=== PATIENT | male | born 1985 | race Caucasian/White ===

== ENCOUNTER 2022-05-18 02:40 | Emergency (ER) | payer OTHER, SELFPAY ==
[2022-05-18 02:50] VITALS: BP 123/82; PULSE 84; RESP 16; TEMP 37; O2SAT 100; BMI 22.4
--- NOTE | 2022-05-18 03:00 | ED.GENADULT ---
HPI - General Adult General Time Seen by Provider: 03:00 Date Seen: 05/18/22 Chief complaint: Abdominal Pain Stated complaint: Stomach issues, back/chest pain Time Seen by Provider: 05/18/22 02:59 Source: patient, RN notes reviewed and old records reviewed Mode of arrival: ambulatory Limitations: no limitations History of Present Illness HPI narrative: 37-year-old male who comes in today with abdominal pain and diarrhea. This started 3 days ago, better yesterday and then had abdominal pain and some cramping tonight so came to the emergency room. Vomited once this evening. Denies fever chills, no blood in the stools. Family member with similar symptoms 2 weeks ago but recovered. Has taken Pepto-Bismol without relief. Related Data Home Medications Medication Instructions Recorded Confirmed No Known Home Medications 05/18/22 05/18/22 Allergies Allergy/AdvReac Type Severity Reaction Status Date / Time No Known Drug Allergies Allergy Verified 05/18/22 02:45 Review of Systems Status of ROS: Reports: 10 or more systems reviewed and unremarkable except as noted in History and below PFSH PFSH Social History Smoking Status: Never smoker Do you use any of these nicotine containing products: Smokeless Tobacco Second hand tobacco smoke exposure: No How often do you have a drink containing alcohol: never How often do you have six or more drinks on one occasion: Never AUDIT-C Alcohol total score: 0 Non-prescribed substance use: denies use Exam Narrative: Exam Narrative: General: well nourished , NAD Head: Atraumatic and normocephalic ENT: External ears and external nose are normal Eyes: Conjunctiva clear, pupils are equal reactive, external ocular motions are intact Neck: Full spontaneous range of motion of the neck Lungs: No respiratory distress Musculoskeletal: No tenderness or deformity Neurologic: No gross focal neurologic deficits Skin: No rashes Psych: Mood and affect are appropriate Const: Vital Signs, click to edit/add: Vital Signs - 24 hr 05/18/22 02:50 Temperature 98.6 F Pulse Rate [Pulse Oximeter] 84 Respiratory Rate 16 Blood Pressure [Le ft Upper Arm] 123/82 Pulse Oximetry 100 Oxygen Delivery Me thod Room Air Course Course Hospital Course: Patient seen and examined, prior records reviewed. Patient presents today with diarrhea and some abdominal cramping. On exam here, patient's pain-free. No fever or chills. No tenderness on abdominal exam at this time. Labs are ordered along with fluids and Imodium. If these are reassuring, patient can be discharged. Would expect leukocytosis given GI illness but in absence of abdominal tenderness on exam, no indication for CT pelvis at this time. Reevaluation(s) Reevaluation #1: Labs independently interpreted by me demonstrates slightly elevated total bilirubin, otherwise basic panel CBC are reassuring. Patient stable for discharge with Bentyl this mood improved symptoms. Time: 03:51 Vital Signs Vital signs: Initial Vital Signs Temperature 98.6 F 05/18/22 02:50 Temperature Source Temporal Artery Scan 05/18/22 02:50 Pulse Rate 84 05/18/22 02:50 Respiratory Rate 16 05/18/22 02:50 Blood Pressure 123/82 05/18/22 02:50 Blood Pressure Mean 95 05/18/22 02:50 Pulse Oximetry 100 05/18/22 02:50 Oxygen Delivery Method 05/18/22 02:50 Vital Signs Temperature 98.6 F 05/18/22 02:50 Pulse Rate 84 05/18/22 02:50 Respiratory Rate 16 05/18/22 02:50 Blood Pressure 123/82 05/18/22 02:50 Pulse Oximetry 100 05/18/22 02:50 Oxygen Delivery Method 05/18/22 02:50 Temperature 98.6 F 05/18/22 02:50 Pulse Rate 84 05/18/22 02:50 Respiratory Rate 16 05/18/22 02:50 Blood Pressure 123/82 05/18/22 02:50 Pulse Oximetry 100 05/18/22 02:50 Oxygen Delivery Method 05/18/22 02:50 Medical Decision Making Medical Records Medical records reviewed: Yes I reviewed the patient's medical records Lab Data Lab results reviewed: Yes I reviewed the patient's lab results Labs: Lab Results 05/18/22 05/18/22 Range/Units 03:05 03:05 WBC 9.55 (4.50-11.00) K/uL RBC 5.95 H (4.30-5.90) m/uL Hgb 16.9 (13.5-17.5) gm/dL Hct 48.6 (37.0-53.0) % MCV 82 (80-100) fL MCH 28 (26-34) pg MCHC 35 (32-36) gm/dL RDW Coeff of Betty 12.6 (11.5-15.5) % Plt Count 189 (140-440) K/uL Neut % (Auto) 90.0 H (42.0-72.0) % Lymph % (Auto) 7.7 L (20-44) % [place] % (Auto) 1.7 (0.0-11.0) % Eos % (Auto) 0.3 (0.0-7.0) % Baso % (Auto) 0.1 (0.0-3.0) % Neut # (Auto) 8.60 H (1.7-7.0) K/uL Lymph # (Auto) 0.70 L (0.90-2.90) K/uL [place] # (Auto) 0.20 (0.00-0.90) K/UL Eos # (Auto) 0.03 (0.00-0.50) K/uL Baso # (Auto) 0.01 (0.00-0.30) K/uL Sodium 138 (135-149) mmol/L Potassium 3.7 (3.6-5.1) mmol/L Chloride 103 (96-114) mmol/L Carbon Dioxide 27 (20-32) mmol/L BUN 13 (5-24) mg/dL Creatinine 1.1 (0.5-1.5) mg/dL Estimated Creat Clear 98.34 Estimated GFR 88 ml/min Glucose 87 (60-115) mg/dL Calcium 9.1 (8.4-10.6) mg/dL Total Bilirubin 1.7 H (0.1-1.5) mg/dL Direct Bilirubin 0.1 (0.0-0.5) mg/dL AST 28 (12-35) U/L ALT 21 (4-50) U/L Alkaline Phosphatase 59 (40-150) U/L Total Protein 7.3 (6.0-8.3) g/dL Albumin 4.6 (3.3-5.0) g/dL Discharge Plan Discharge Clinical Impression: Gastroenteritis Patient Disposition: Home, Self-Care Condition: Stable Instructions: Acute Diarrhea (ED) Additional Instructions: Continue regular diet. Take Imodium and Bentyl as needed for pain. Activity Level: No Restrictions Discharge Diet: Regular Prescriptions: No Action No Known Home Medications [facility] Inst[facility]
[2022-05-18] MEDS: LOPERAMIDE HCL 2 MG CAPSULE 4 MG PO (03:04)
[2022-05-18] MEDS: 0.9 % SODIUM CHLORIDE 1000 ml 1,000 ML IV (03:05)
[2022-05-18 03:12] LABS: Basophils Absolute Auto 0.01 K/uL (0.00-0.30); Basophils Percent Auto 0.1 % (0.0-3.0); Eosinophils Absolute Auto 0.03 K/uL (0.00-0.50); Eosinophils Percent Auto 0.3 % (0.0-7.0); Hematocrit 48.6 % (37.0-53.0); Hemoglobin* 16.9 gm/dL (13.5-17.5); Immature Granulocytes Abs Auto 0.02 K/uL (0.00-0.30); Immature Granulocytes Pct Auto 0.2 %; Lymphocytes Percent Auto 7.7 % (20-44); Mean Corpuscular HGB Conc 35 gm/dL (32-36); Mean Corpuscular Hemoglobin 28 pg (26-34); Mean Corpuscular Volume 82 fL (80-100); Monocytes Percent Auto 1.7 % (0.0-11.0); Platelet Count* 189 K/uL (140-440); RDW Coefficient of Variation % 12.6 % (11.5-15.5); Red Blood Count 5.95 m/uL (4.30-5.90); White Blood Count* 9.55 K/uL (4.50-11.00)
[2022-05-18 03:13] LABS: Slide Review Reflex No
[2022-05-18 03:25] LABS: Albumin* 4.6 g/dL (3.3-5.0); Chloride* 103 mmol/L (96-114); Potassium* 3.7 mmol/L (3.6-5.1); Sodium* 138 mmol/L (135-149)
[2022-05-18 03:27] LABS: Carbon Dioxide* 27 mmol/L (20-32); Creatinine* 1.1 mg/dL (0.5-1.5); Est. Creatinine Clearance* 98.34; Estimated Glomerular Filt Rate 88 ml/min
[2022-05-18 03:28] LABS: Alanine Aminotransferase* 21 U/L (4-50); Alkaline Phosphatase* 59 U/L (40-150); Aspartate Amino Transferase* 28 U/L (12-35); Bilirubin Direct* 0.1 mg/dL (0.0-0.5); Bilirubin Total* 1.7 mg/dL (0.1-1.5); Blood Urea Nitrogen* 13 mg/dL (5-24); Calcium* 9.1 mg/dL (8.4-10.6); Glucose* 87 mg/dL (60-115); Total Protein* 7.3 g/dL (6.0-8.3)
[2022-05-18 03:53] VITALS: BP 122/69; PULSE 75; RESP 16; O2SAT 100
== END 2022-05-18 04:05 | disposition home or self-care (01) ==
PROVIDERS: Emergency Provider Family Medicine
DX: K52.9 Noninfective gastroenteritis and colitis, unspecified (principal)
CPT/HCPCS: 36415; 80048; 80076; 85025; 99283; 99284; A9270; J7030